=== PATIENT | male | born 1990 | race Caucasian/White ===

== ENCOUNTER → 2019-07-26 | Outpatient (CLI) | payer SELFPAY ==
[~2019-07-26] MED LIST: ALBU90OI INH; Crutch1 EACH MISC; HYDACE5 PO; IBUP600 PO; Norco 5-325 Ta1 EACH PO
[2019-07-29 06:07] LABS: CHLAMYDIA TRACHOMATIS, NAA Negative (Negative); NEISSERIA GONORRHOEAE, NAA Negative (Negative)
== END | disposition home or self-care (01) ==
LOC: LAB EV 17:13 → LAB SHORT 17:13
PROVIDERS: Physician Assistant Surgical
DX: Z72.51 High risk heterosexual behavior (principal)
CPT/HCPCS: 87491; 87591

== ENCOUNTER → 2019-08-13 | Outpatient (CLI) | payer SELFPAY ==
[2019-08-13 15:58] LABS: BASOPHILS ABSOLUTE AUTO 0.02 K/mm3 (0.00-0.23); BASOPHILS PERCENT AUTO 0 % (0-2); EOSINOPHILS ABSOLUTE AUTO 0.01 K/mm3 (0.00-0.68); EOSINOPHILS PERCENT AUTO 0 % (0-6); Hematocrit 47.7 % (37.0-53.0); Hemoglobin 16.9 g/dL (13.5-17.5); IMMATURE GRAN ABSOLUTE AUTO 0.01 K/mm3 (0.00-0.10); IMMATURE GRAN PERCENT AUTO 0 % (0-1); LYMPHOCYTES ABSOLUTE AUTO 1.31 K/mm3 (0.84-5.20); LYMPHOCYTES PERCENT AUTO 19 % (21-46); MONOCYTES PERCENT AUTO 7 % (4-13); Mean Corpuscular HGB 33.7 pg (26.0-34.0); Mean Corpuscular HGB Conc 35.4 g/dL (31.5-36.5); Mean Corpuscular Volume 95 fL (80-100); Mean Platelet Volume 9.7 fL (9.1-12.4); NEUTROPHILS ABSOLUTE AUTO 5.06 K/mm3 (1.96-9.15); NEUTROPHILS PERCENT AUTO 73 % (41-73); Platelet Count 248 K/mm3 (150-400); RDW Coefficient Variation 12.1 % (11.7-14.2); Red Blood Cell Count 5.01 M/mm3 (4.30-5.90); White Blood Cell Count 6.91 K/mm3 (4.00-11.30)
[2019-08-13 16:05] LABS: Alanine Aminotransfer (ALT/SGP 23 U/L (12-78); Albumin, Blood 4.8 g/dL (3.4-5.0); Albumin/Globulin Ratio 1.3 (0.8-1.8); Alk Phos 65 U/L (40-126); Anion Gap 8 mmol/L (6-16); Aspartate Aminotrans (AST/SGOT 21 U/L (12-37); Bilirubin, Total 0.8 mg/dL (0.1-1.0); Blood Urea Nitrogen 15 mg/dL (8-24); Bun/Creatinine Ratio 15.3 (12.0-20.0); CO2, Blood 28 mmol/L (21-32); Calcium, Blood 8.8 mg/dL (8.5-10.1); Chloride, Blood 103 mmol/L (98-108); Creatinine, Blood 0.98 mg/dL (0.60-1.20); Globulin, Blood 3.7 g/dL (2.2-4.0); Glomerular Filtration Rate >60 (60-); Glucose, Blood 95 mg/dL (70-99); Potassium, Blood 4.2 mmol/L (3.5-5.5); Sodium, Blood 139 mmol/L (136-145); Total Protein, Blood 8.5 g/dL (6.4-8.2)
== END ==
LOC: LAB SHORT 15:52 → LAB EV 15:52
PROVIDERS: Emergency Medicine
DX: I10 Essential (primary) hypertension (principal)
CPT/HCPCS: 80053; 85025; G0480

== ENCOUNTER → 2020-03-01 | Outpatient (CLI) | payer OTHER ==
[2020-03-01 14:03] LABS: Free Thyroxine 1.07 ng/dL (0.70-1.60); Thyroid Stimulating Hormone 0.871 uIU/mL (0.360-4.800)
== END ==
LOC: LAB EV 13:37 → LAB SHORT 13:37
PROVIDERS: Emergency Medicine
DX: R13.10 Dysphagia, unspecified (principal)
CPT/HCPCS: 84439; 84443; 84481

== ENCOUNTER 2020-05-12 23:10 | Emergency (ER) | payer OTHER ==
[~2020-05-12] VITALS: Ht 170.2 cm; Wt 70.3 kg
[2020-05-13] MEDS ORDERED: AMOCLA875 PO (03:05)
== END 2020-05-13 03:15 | disposition home or self-care (01) ==
LOC: ER 23:10
DX: L03.113 Cellulitis of right upper limb (principal); Z91.048 Other nonmedicinal substance allergy status; F17.290 Nicotine dependence, other tobacco product, uncomplicated
CPT/HCPCS: 36415; 73130; 83605; 96365; 99283-25; J0692; J1885

== ENCOUNTER 2020-05-14 20:04 | Emergency (ER) | payer OTHER ==
[~2020-05-14] VITALS: Ht 170.2 cm; Wt 68.0 kg
[~2020-05-14 20:04] MED LIST changes: +AMOCLA875 PO
== END 2020-05-14 23:12 | disposition home or self-care (01) ==
LOC: ER 20:04
DX: S61.451D Open bite of right hand, subsequent encounter (principal); F17.220 Nicotine dependence, chewing tobacco, uncomplicated; Z91.09 Other allergy status, other than to drugs and biological substances; Z91.048 Other nonmedicinal substance allergy status; Y04.1XXD Assault by human bite, subsequent encounter
CPT/HCPCS: 99283

== ENCOUNTER 2020-05-27 11:17 | Emergency (ER) | payer OTHER | END 2020-05-27 12:02 | disposition left against medical advice (07) | LOC: ER 11:17 | DX: Z53.21 Procedure and treatment not carried out due to patient leaving prior to being seen by health care provider (principal) ==

== ENCOUNTER 2020-06-03 12:06 | Emergency (ER) | payer OTHER ==
[~2020-06-03] VITALS: Ht 167.6 cm; Wt 66.2 kg
[2020-06-03] MEDS ORDERED: FLOVENT HFA12 GM (12:28)
[2020-06-03] MEDS ORDERED: MONT4 (12:29)
== END 2020-06-03 13:06 | disposition home or self-care (01) ==
LOC: ER 12:06
DX: R06.02 Shortness of breath (principal); Z91.048 Other nonmedicinal substance allergy status; F17.220 Nicotine dependence, chewing tobacco, uncomplicated
CPT/HCPCS: 99283

== ENCOUNTER → 2021-04-27 | Outpatient (CLI) | payer OTHER ==
[~2021-04-27] MED LIST changes: +FLOVENT HFA12 GM; +MONT4
== END | disposition home or self-care (01) ==
LOC: LAB 15:00 → LAB SHORT 15:00
DX: K58.0 Irritable bowel syndrome with diarrhea (principal); T78.40XA Allergy, unspecified, initial encounter
CPT/HCPCS: 87177; 87209

== ENCOUNTER → 2021-04-29 | Outpatient (CLI) | payer OTHER | END | disposition home or self-care (01) | LOC: LAB SHORT 14:30 → LAB 14:30 | DX: K58.0 Irritable bowel syndrome with diarrhea (principal); T78.40XA Allergy, unspecified, initial encounter | CPT/HCPCS: 87177; 87209 ==

== ENCOUNTER 2024-09-09 03:22 | Emergency (ER) | payer OTHER ==
[~2024-09-09] VITALS: Ht 170.2 cm; Wt 70.3 kg
[2024-09-09 03:57] VITALS: BP 163/113
[2024-09-09] MEDS ORDERED: Ondansetron HCl 2 MG / ML 2ML Vial IV PRN (04:10)
[2024-09-09] MEDS ORDERED: NS 1,000 ML IV SCH (04:10)
[2024-09-09 04:21] LABS: BASOPHILS ABSOLUTE AUTO 0.01 K/mm3 (0.00-0.23); BASOPHILS PERCENT AUTO 0 % (0-2); EOSINOPHILS PERCENT AUTO 0 % (0-6); Hematocrit 42.2 % (37.0-53.0); Hemoglobin 15.6 g/dL (13.5-17.5); IMMATURE GRAN ABSOLUTE AUTO 0.03 K/mm3 (0.00-0.10); IMMATURE GRAN PERCENT AUTO 0 % (0-1); LYMPHOCYTES ABSOLUTE AUTO 0.73 K/mm3 (0.84-5.20); LYMPHOCYTES PERCENT AUTO 7 % (21-46); MONOCYTES ABSOLUTE AUTO 0.22 K/mm3 (0.16-1.47); MONOCYTES PERCENT AUTO 2 % (4-13); Mean Corpuscular HGB 32.8 pg (26.0-34.0); Mean Corpuscular Volume 89 fL (80-100); Mean Platelet Volume 9.3 fL (9.1-12.4); NEUTROPHILS ABSOLUTE AUTO 8.81 K/mm3 (1.96-9.15); NEUTROPHILS PERCENT AUTO 90 % (41-73); Platelet Count 260 K/mm3 (150-400); RDW Coefficient Variation 11.9 % (11.7-14.2); RDW Standard Deviation 38.1 fL (35.1-46.3); Red Blood Cell Count 4.76 M/mm3 (4.30-5.90)
[2024-09-09] MEDS ORDERED: Prochlorperazine Edisylate 10 mg Vial IV ONE (04:35)
[2024-09-09] MEDS ORDERED: DiphenhydrAMINE HCl 50 MG/ML 1ML Vial IV ONE (04:35)
[2024-09-09 04:39] LABS: Albumin, Blood 4.7 g/dL (3.4-5.0); Albumin/Globulin Ratio 1.2 (0.8-1.8); Bilirubin, Total 0.7 mg/dL (0.1-1.0); Bun/Creatinine Ratio 20.5 (12.0-20.0); Creatinine, Blood 0.88 mg/dL (0.60-1.20); Globulin, Blood 3.8 g/dL (2.2-4.0); Potassium, Blood 3.8 mmol/L (3.5-5.5); Total Protein, Blood 8.5 g/dL (6.4-8.2)
[2024-09-09] MEDS ORDERED: ONDA4ODT MM (05:44)
== END 2024-09-09 07:24 | disposition home or self-care (01) ==
LOC: ER 03:22
PROVIDERS: Emergency Medicine
DX: A05.9 Bacterial foodborne intoxication, unspecified (principal); Z87.891 Personal history of nicotine dependence; J45.909 Unspecified asthma, uncomplicated; Z88.8 Allergy status to other drugs, medicaments and biological substances; Z91.09 Other allergy status, other than to drugs and biological substances; Z79.899 Other long term (current) drug therapy
CPT/HCPCS: 80053; 85025; 96361; 96374; 96375; 99284-25; J0780; J1200; J2405; J7030

== ENCOUNTER 2025-04-02 17:48 | Emergency (ER) | payer OTHER ==
[~2025-04-02] VITALS: Ht 167.6 cm; Wt 68.0 kg
[~2025-04-02 17:48] MED LIST changes: +ONDA4ODT MM
[2025-04-02] MEDS ORDERED: Ondansetron HCl 2 MG / ML 2ML Vial IV PRN (18:15)
[2025-04-02 18:40] LABS: BASOPHILS ABSOLUTE AUTO 0.03 K/mm3 (0.00-0.23); BASOPHILS PERCENT AUTO 1 % (0-2); EOSINOPHILS ABSOLUTE AUTO 0.22 K/mm3 (0.00-0.68); EOSINOPHILS PERCENT AUTO 4 % (0-6); Hematocrit 39.1 % (37.0-53.0); Hemoglobin 13.9 g/dL (13.5-17.5); IMMATURE GRAN ABSOLUTE AUTO 0.02 K/mm3 (0.00-0.10); IMMATURE GRAN PERCENT AUTO 0 % (0-1); LYMPHOCYTES ABSOLUTE AUTO 1.67 K/mm3 (0.84-5.20); LYMPHOCYTES PERCENT AUTO 32 % (21-46); MONOCYTES ABSOLUTE AUTO 0.39 K/mm3 (0.16-1.47); MONOCYTES PERCENT AUTO 7 % (4-13); Mean Corpuscular HGB Conc 35.5 g/dL (31.5-36.5); Mean Corpuscular Volume 92 fL (80-100); NEUTROPHILS ABSOLUTE AUTO 2.94 K/mm3 (1.96-9.15); NEUTROPHILS PERCENT AUTO 56 % (41-73); NRBC ABSOLUTE 0.00 K/mm3 (0.00-0.02); NRBC Auto 0.0 /100 WBC (0.0-0.2); Platelet Count 192 K/mm3 (150-400); RDW Coefficient Variation 12.2 % (11.7-14.2); RDW Standard Deviation 41.5 fL (35.1-46.3)
[2025-04-02 19:14] LABS: Alanine Aminotransfer (ALT/SGP 26.0 U/L (12-78); Albumin, Blood 3.9 g/dL (3.4-5.0); Albumin/Globulin Ratio 1.2 (0.8-1.8); Anion Gap 5.0 mmol/L (3-11); Aspartate Aminotrans (AST/SGOT 19.0 U/L (12-37); Bilirubin, Total 0.7 mg/dL (0.1-1.0); Blood Urea Nitrogen 14.0 mg/dL (8-24); CO2, Blood 30.0 mmol/L (21-32); Calcium, Blood 9.2 mg/dL (8.5-10.1); Chloride, Blood 104.0 mmol/L (98-108); Creatinine, Blood 0.9 mg/dL (0.60-1.20); Globulin, Blood 3.2 g/dL (2.2-4.0); Glucose, Blood 106.0 mg/dL (70-99); Potassium, Blood 3.7 mmol/L (3.5-5.5); Sodium, Blood 135.0 mmol/L (136-145); Total Protein, Blood 7.1 g/dL (6.4-8.2)
[2025-04-02] MEDS ORDERED: Polyethylene Glycol 3350 17 gm PO ONE (20:05)
[2025-04-02] MEDS ORDERED: Magnesium Hydroxide Conc 10 ML UDC PO ONE (20:05)
[2025-04-02] MEDS ORDERED: NS 1,000 ML IV SCH (20:10)
[2025-04-02] MEDS ORDERED: Ondansetron HCl 2 MG / ML 2ML Vial IV ONE (20:10)
[2025-04-02 22:05] VITALS: BP 148/100
[2025-04-02] MEDS ORDERED: MINERAL OIL133 M1 PR (23:30)
[2025-04-02] MEDS ORDERED: ADULT GLYCERIN1 EACH PR (23:30)
== END 2025-04-02 23:21 | disposition home or self-care (01) ==
LOC: ER 17:48
PROVIDERS: Student in an Organized Health Care Education/Training Program
DX: K59.00 Constipation, unspecified (principal); R11.14 Bilious vomiting; J45.909 Unspecified asthma, uncomplicated; F17.220 Nicotine dependence, chewing tobacco, uncomplicated; Z79.899 Other long term (current) drug therapy
CPT/HCPCS: 74018; 80053; 85025; 96374; 99283-25; A9270; J2405; J7030